=== PATIENT | male | born 1995 | race Caucasian/White ===

== ENCOUNTER 2017-12-29 15:22 | Emergency (ER) | payer OTHER ==
[2017-12-29 15:32] VITALS: Ht 182.9 cm
[2017-12-29 17:45] VITALS: BP 116/77
== END 2017-12-29 17:45 | disposition home or self-care (01) ==
LOC: ED 15:22
DX: J45.901 Unspecified asthma with (acute) exacerbation (principal)
CPT/HCPCS: 99406; J0171; J7512; J7613; J7644

== ENCOUNTER 2018-01-24 20:58 | Emergency (ER) | payer OTHER ==
[~2018-01-24] VITALS: Ht 182.9 cm; Wt 64.2 kg
[2018-01-24 21:12] VITALS: Ht 182.9 cm; Wt 64.2 kg
[2018-01-24 21:28] VITALS: BP 121/77
== END 2018-01-24 21:28 | disposition home or self-care (01) ==
LOC: ED 20:58
DX: K02.9 Dental caries, unspecified (principal); J45.909 Unspecified asthma, uncomplicated